=== PATIENT | female | born 1985 | race Caucasian/White ===

== ENCOUNTER 2016-08-10 13:46 | Emergency (ER) | payer SELFPAY ==
[2016-08-10 14:51] VITALS: BP 96/57
--- NOTE | 2016-08-10 15:25 | UC ---
Complaint Female HPI - HPI Summary HPI Summary: 31 yo female presents requesting a test missed period last month vomited 2 days ago had some mild right sided pelvic pain which resolved with advil no f/c no back pain no vag d/c no abd pain now - History Of Current Complaint Chief Complaint: UCGU Stated Complaint: personal Time Seen by Provider: 08/10/16 14:59 Hx Obtained From: Patient Hx Last Menstrual Period: 05/30 due to depo Onset/Duration: Resolved - no pain currently Severity Initially: Mild Severity Currently: None Pain Intensity: 0 Pain Scale Used: 0-10 Numeric Character: Not Applicable Aggravating Factor(s): Nothing Alleviating Factor(s): Nothing Associated Signs And Symptoms: Positive: Nausea - resovled, Vomiting(# Of Episodes =) - 2 epeisodes 2 days ago. Negative: Fever, Back Pain, Genital Swelling, Genital Blisters - Allergies/Home Medications Allergies/Adverse Reactions: Allergies Allergy/AdvReac Type Severity Reaction Status Date / Time Erythromycin Allergy Unknown Verified 08/10/16 14:51 Reaction Details Macrolides Allergy Unknown Verified 08/10/16 14:51 Reaction Details Sulfa Drugs Allergy Unknown Verified 08/10/16 14:51 Reaction Details Home Medications: Home Medications Albuterol HFA INHALER* [Ventolin HFA Inhaler*] 2 puff INH Q4H PRN 08/10/16 [ History Confirmed 08/10/16] PMH/Surg Hx/FS Hx/Imm Hx Respiratory History Of: Reports: Asthma - Surgical History Surgical History: Yes Surgery Procedure, Year, and Place: oil gland removed from head at age 13 - Family History Known Family History: Positive: Hypertension, Respiratory Disease - Social History Alcohol Use: Rare Substance Use Type: None Smoking Status (MU): Heavy Every Day Tobacco Smoker When Did the Patient Quit Smoking/Using Tobacco: 2 months ago Review of Systems Constitutional: Negative Skin: Negative Eyes: Negative ENT: Negative Respiratory: Negative Cardiovascular: Negative Gastrointestinal: Negative Genitourinary: Negative Motor: Negative Neurovascular: Negative Musculoskeletal: Negative Neurological: Negative Psychological: Negative All Other Systems Reviewed And Are Negative: Yes Physical Exam Triage Information Reviewed: Yes Appearance: Well-Appearing, No Pain Distress, Well-Nourished - BMI 28 Vital Signs: Initial Vital Signs Temp 97.8 F 08/10/16 14:46 Pulse 85 08/10/16 14:46 Resp 16 08/10/16 14:46 BP 96/57 08/10/16 14:46 Pulse Ox 99 08/10/16 14:46 Vital Signs Reviewed: Yes Eyes: Positive: Conjunctiva Clear ENT: Positive: Pharynx normal. Negative: Nasal congestion, Nasal drainage, Trismus, Muffled/hoarse voice Dental: Negative: Abscess @ Neck: Positive: Supple, Nontender, No Lymphadenopathy Respiratory: Positive: Lungs clear, Normal breath sounds, No respiratory distress Cardiovascular: Positive: RRR, No Murmur, Pulses Normal Abdomen Description: Positive: Nontender, No Organomegaly, Soft. Negative: CVA Tenderness (R), CVA Tenderness (L) Musculoskeletal: Positive: Strength Intact, ROM Intact Neurological: Positive: Alert Psychological Exam: Normal Skin Exam: Normal Complaint Female Dx - Differential Dx/Diagnosis Provider Diagnoses: missed period. (-) HCG Discharge - Discharge Plan Condition: Stable Disposition: HOME Patient Education Materials: Amenorrhea (GEN) Referrals: Flavia Jett MD [Primary Care Provider] - 1 Week Additional Instructions: call for any questions return for any problems
== END 2016-08-10 15:53 | disposition home or self-care (01) ==
LOC: UCCORT 13:46
DX: N91.2 Amenorrhea, unspecified (principal); Z32.02 Encounter for pregnancy test, result negative; J45.909 Unspecified asthma, uncomplicated; Z88.1 Allergy status to other antibiotic agents; Z88.2 Allergy status to sulfonamides; Z87.891 Personal history of nicotine dependence
CPT/HCPCS: 84702; 99211; G0463

== ENCOUNTER 2016-11-12 08:26 | Emergency (ER) | payer SELFPAY ==
[2016-11-12 09:17] VITALS: BP 120/59
--- NOTE | 2016-11-12 09:26 | UC ---
Abdominal Pain Female HPI - HPI Summary HPI Summary: PT REPORTS SHE HAS HAD INTERMITTENT EPIGASTRIC PAIN THAT RADIATES UP TO HER CHEST FOR ABOUT 4 YEARS. EPISODES USUALLY EVERY 1-2 MONTHS AND LAST FOR HOURS UP TO A DAY. BETTER WHEN SHE DRINKS FLUID. OVER PAST WEEK SX HAVE BEEN MORE FREQUENT. HAS HAD IT DAILY FOR THE PAST 3 DAYS. SX IMPROVE AFTER DRINKING WATER BUTTHEN RETURN. NO FEVER, NAUSEA, COUGH OR CONGESTION. NO CLEAR ASSOCIATION WITH FOOD. PT ADMITS SHE DOES NOT FOLLOW A REGULAR EATING PATTERN OFTEN ONLY EATING 1 BIG MEAL PER DAY - History of Current Complaint Chief Complaint: UCAbdominalPain Stated Complaint: STOMACH PAIN Time Seen by Provider: 11/12/16 09:15 Hx Obtained From: Patient, Family/Sales Support Representative - DAD Hx Last Menstrual Period: 10/12/16 Onset/Duration: Gradual Onset Timing: Intermittent Episodes Lasting: Severity Initially: Moderate Severity Currently: Moderate Pain Intensity: 8 Pain Scale Used: 0-10 Numeric Location: Epigastric Radiates: Yes Radiates to: Chest Character: Sharp - TWISTING Aggravating Factor(s): Nothing Alleviating Factor(s): Other: - DRINKING Associated Signs and Symptoms: Positive: Constipation. Negative: Fever, Urinary Symptoms, Decreased Appetite, Nausea, Vomiting Allergies/Adverse Reactions: Allergies Allergy/AdvReac Type Severity Reaction Status Date / Time Erythromycin Allergy Unknown Verified 11/12/16 08:37 Reaction Details Macrolides Allergy Unknown Verified 11/12/16 08:37 Reaction Details Sulfa Drugs Allergy Unknown Verified 11/12/16 08:37 Reaction Details PMH/Surg Hx/FS Hx/Imm Hx Respiratory History: Asthma - Surgical History Surgical History: Yes Surgery Procedure, Year, and Place: oil gland removed from head at age 13 - Family History Known Family History: Positive: Hypertension, Respiratory Disease - Social History Alcohol Use: Rare Substance Use Type: None Smoking Status (MU): Heavy Every Day Tobacco Smoker Amount Used/How Often: 1/2ppd When Did the Patient Quit Smoking/Using Tobacco: 2 months ago Review of Systems Constitutional: Negative Skin: Negative Respiratory: Negative Cardiovascular: Negative Gastrointestinal: Abdominal Pain Genitourinary: Negative All Other Systems Reviewed And Are Negative: Yes Physical Exam Triage Information Reviewed: Yes Appearance: Well-Appearing, No Pain Distress, Well-Nourished Vital Signs: Initial Vital Signs Temp 97.7 F 11/12/16 08:32 Pulse 66 11/12/16 08:32 Resp 16 11/12/16 08:32 BP 120/59 11/12/16 08:32 Pulse Ox 100 11/12/16 08:32 Vital Signs Reviewed: Yes Eyes: Positive: Conjunctiva Clear ENT: Positive: Hearing grossly normal Neck: Positive: Supple, Nontender Respiratory Exam: Normal Cardiovascular Exam: Normal Abdomen Description: Positive: Soft, Other: - MILDLY TENDER RLQ. NO REBOUND OR RIGIDITY. Negative: CVA Tenderness (R), CVA Tenderness (L), Distended, Guarding Bowel Sounds: Positive: Present Musculoskeletal: Positive: No Edema Neurological: Positive: Alert Psychological: Positive: Normal Response To Family, Age Appropriate Behavior Skin: Negative: rashes Abd Pain Female Course/Dx - Course Course Of Treatment: PT STATES SHE HAD A DRINK OF WATER BEFORE SHE LEFT THE HOUSE. CURRENTLY NOT EXPERIENCING ANY PAIN. - Differential Dx/Diagnosis Differential Diagnosis: Appendicitis, Constipation, Pancreatitis, Other - GASTRITIS Provider Diagnoses: REFLUX Discharge - Discharge Plan Condition: Stable Disposition: HOME Prescriptions: Omeprazole 40 mg PO DAILY #30 cap Patient Education Materials: Gastritis (ED), Gastroesophageal Reflux Disease ( ED) Referrals: Gemini Lombardo MD [Primary Care Provider] - If Needed Additional Instructions: TAKE THE REFLUX MEDICINE IN THE MORNING (IDEALLY AT LEAST 30 MINUTES BEFORE YOU EAT). EAT SLOWLY. STAY UPRIGHT AT LEAST 30 MINUTES AFTER EATING. EAT SMALLER, MORE FREQUENT MEALS OPPOSED TO LARGE INFREQUENT MEALS. AVOID POSSIBLE TRIGGER FOODS - GREASY, SPICY, ACIDIC FOODS. CAFFEINE, ALCOHOL. FOLLOW-UP WITH YOUR PCP IF YOUR SYMPTOMS DO NOT IMPROVE. ABDOMINAL PAIN: There are many causes of abdominal pain. Pain can mean a serious problem requiring surgery (such as appendicitis), or an innocent problem which goes away on its own (such as a viral infection). Often, time must pass to determine the cause of pain. The physician does not feel that hospitalization is necessary, at present. Conditions may change, however, within the next 24 hours. Therefore, call the doctor or come back for re-examination if any problems occur, such as: 1) Pain which becomes more severe, steady, or becomes concentrated in one specific area. Also, pain which is more severe with movement or coughing. 2) Vomiting which persists or becomes more frequent. 3) Blood in the vomitus, urine, or bowel movements. Blood in the stool may have a tarry or black appearance. 4) Shaking chills or fever greater than 100 degrees F. 5) The abdomen becomes more distended or swollen. 6) Bowel movements cease. 7) Failure to improve as expected. OBSERVATION FOR APPENDICITIS: At this time, the abdominal pain does not seem to be appendicitis. Our next "test" will be passage of time. If you have early appendicitis, signs will appear to help us make the diagnosis. Most of the time, the pain goes away. In these cases, the pain is usually due to a virus in the lymph glands near the appendix, or due to an ovarian cyst or ovulation. Unless the pain is gone, you should come back for a recheck. This is usually done in 8 to 12 hours. Be sure you understand your follow-up instructions. GO TO THE ER IMMEDIATELY IF: (1) the pain becomes much more severe and sharply increases with movement or coughing, (2) vomiting becomes frequent, (3) there is blood in the vomit, urine, or bowel movements, (4) there are shaking chills or fever, or (5) the abdomen becomes more distended or swollen.
== END 2016-11-12 09:46 | disposition home or self-care (01) ==
LOC: UCCORT 08:26
DX: K21.9 Gastro-esophageal reflux disease without esophagitis (principal); Z87.891 Personal history of nicotine dependence
CPT/HCPCS: 99212; G0463

== ENCOUNTER 2017-02-17 10:51 | Emergency (ER) | payer OTHER ==
[2017-02-17 11:11] VITALS: BP 124/53
--- NOTE | 2017-02-17 11:31 | UC ---
Skin Complaint HPI - HPI Summary HPI Summary: Exposed to scabies as she babysat some one who had it recently and now with itchy rash on wrists and arms and abdomen. - History of Current Complaint Chief Complaint: UCSkin Stated Complaint: RASH Hx Obtained From: Patient Hx Last Menstrual Period: tubal, 02/13/17 Onset/Duration: Gradual Onset Skin Exposure Onset/Duration: Weeks Ago - Allergy/Home Medications Allergies/Adverse Reactions: Allergies Allergy/AdvReac Type Severity Reaction Status Date / Time Erythromycin Allergy Unknown Verified 02/17/17 11:10 Reaction Details Macrolides Allergy Unknown Verified 02/17/17 11:10 Reaction Details Sulfa Drugs Allergy Unknown Verified 02/17/17 11:10 Reaction Details Review of Systems Skin: Rash All Other Systems Reviewed And Are Negative: Yes PMH/Surg Hx/FS Hx/Imm Hx Previously Healthy: Yes - Surgical History Surgical History: Yes Surgery Procedure, Year, and Place: oil gland removed from head at age 13 - Family History Known Family History: Positive: Hypertension, Respiratory Disease - Social History Occupation: Employed Part-time Lives: With Family Alcohol Use: Rare Substance Use Type: None Smoking Status (MU): Heavy Every Day Tobacco Smoker Amount Used/How Often: 1/2ppd When Did the Patient Quit Smoking/Using Tobacco: 2 months ago Physical Exam Triage Information Reviewed: Yes Appearance: Well-Appearing, No Pain Distress, Well-Nourished Vital Signs: Initial Vital Signs Temp 97.1 F 02/17/17 11:07 Pulse 64 02/17/17 11:07 Resp 14 02/17/17 11:07 BP 124/53 02/17/17 11:07 Pulse Ox 100 02/17/17 11:07 Vital Signs Reviewed: Yes Eye Exam: Normal ENT Exam: Normal Dental Exam: Normal Neck exam: Normal Neck: Positive: 1 Respiratory Exam: Normal Cardiovascular Exam: Normal Musculoskeletal Exam: Normal Neurological Exam: Normal Psychological Exam: Normal Skin Exam: Normal Skin: Positive: rashes - multiple small, erythematous papules rash on wrists, hands, abdomen Course/Dx - Diagnoses Provider Diagnoses: scabies Discharge - Discharge Plan Condition: Good Disposition: HOME Prescriptions: Permethrin 5% CREAM* 1 applic TOPICAL SEE INSTRUCTIONS #1 tube Patient Education Materials: Scabies (ED) Referrals: Gemini Lombardo MD [Primary Care Provider] - 4 Days
== END 2017-02-17 11:44 | disposition home or self-care (01) ==
LOC: UCCORT 10:51
DX: B86 Scabies (principal); F17.210 Nicotine dependence, cigarettes, uncomplicated; Z88.0 Allergy status to penicillin; Z88.2 Allergy status to sulfonamides; Z88.8 Allergy status to other drugs, medicaments and biological substances
CPT/HCPCS: 99212; G0463